=== PATIENT | female | born 2005 | race Caucasian/White ===

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

== ENCOUNTER 2025-01-08 12:23 | Outpatient (CLI) | payer MEDICAID, SELFPAY ==
[2025-01-08] VITALS (11 sets, daily range): BP systolic 105–137; BP diastolic 54–93; PULSE 64–102; RESP 16; BMI 28.0
[2025-01-08 12:58] LABS: Glucose Urine UA Negative (Normal); Nitrate Urine Negative (Negative); Specific Gravity, Urine 1.026 (1.005-1.030)
[2025-01-08] MEDS: ondansetron 2 mg/ML SDV 2 mL 4 MG IVP (13:47)
== END 2025-01-08 14:58 | disposition home or self-care (01) ==
LOC: OPOB 12:23 → OBGYN 12:24
PROVIDERS: PCP Student in an Organized Health Care Education/Training Program; Visit Provider Obstetrics & Gynecology
DX: O26.899 Other specified pregnancy related conditions, unspecified trimester (principal); Z3A.00 Weeks of gestation of pregnancy not specified; R25.2 Cramp and spasm
CPT/HCPCS: 81001; 99211; J2405; J7120

== ENCOUNTER → 2025-01-11 08:45 | Outpatient (BNVA) | payer MEDICAID, SELFPAY | PROVIDERS: PCP Student in an Organized Health Care Education/Training Program; Visit Provider Obstetrics & Gynecology | DX: Z34.90 Encounter for supervision of normal pregnancy, unspecified, unspecified trimester (principal) | CPT/HCPCS: 84315 ==

== ENCOUNTER → 2025-01-25 07:59 | Outpatient (BNVA) | payer MEDICAID, SELFPAY | PROVIDERS: PCP Student in an Organized Health Care Education/Training Program; Visit Provider Nurse Practitioner Women's Health | DX: Z34.90 Encounter for supervision of normal pregnancy, unspecified, unspecified trimester (principal) | CPT/HCPCS: 84315 ==

== ENCOUNTER → 2025-03-01 08:40 | Outpatient (BNVA) | payer MEDICAID, SELFPAY | PROVIDERS: PCP Student in an Organized Health Care Education/Training Program; Visit Provider Obstetrics & Gynecology | DX: O26.892 Other specified pregnancy related conditions, second trimester (principal); Z3A.28 28 weeks gestation of pregnancy | CPT/HCPCS: 82950; 84315; 85025 ==

== ENCOUNTER → 2025-03-06 08:01 | Outpatient (BNVA) | payer MEDICAID, SELFPAY | PROVIDERS: PCP Student in an Organized Health Care Education/Training Program; Visit Provider Nurse Practitioner Women's Health | DX: Z34.90 Encounter for supervision of normal pregnancy, unspecified, unspecified trimester (principal) | CPT/HCPCS: 84315 ==

== ENCOUNTER 2025-03-07 18:40 | Outpatient (CLI) | payer MEDICAID, SELFPAY ==
[2025-03-07 19:07] VITALS: BP 121/64; PULSE 85
[2025-03-07 19:21] VITALS: BP 96/59; PULSE 86
[2025-03-07 19:37] VITALS: BP 120/65; PULSE 86
[2025-03-07 19:42] VITALS: BMI 30.8
[2025-03-07 19:57] VITALS: BP 120/65; PULSE 86; RESP 15; TEMP 36.7; O2SAT 98
== END 2025-03-07 19:55 | disposition home or self-care (01) ==
LOC: OPOB 18:43 → OBGYN 18:57
PROVIDERS: PCP Student in an Organized Health Care Education/Training Program; Visit Provider Obstetrics & Gynecology
DX: O26.899 Other specified pregnancy related conditions, unspecified trimester (principal); Z3A.00 Weeks of gestation of pregnancy not specified; R10.9 Unspecified abdominal pain
CPT/HCPCS: 59025; 99211

== ENCOUNTER 2025-03-12 16:12 | Outpatient (CLI) | payer MEDICAID, SELFPAY ==
[2025-03-12 16:24] VITALS: BMI 31.1
[2025-03-12 16:36] VITALS: BP 119/67; PULSE 94
[2025-03-12 16:47] VITALS: BP 123/67; PULSE 94
[2025-03-12 17:02] VITALS: BP 127/60; PULSE 88
[2025-03-12 17:32] VITALS: BP 111/63; PULSE 100
[2025-03-12 17:47] VITALS: BP 112/64; PULSE 87
[2025-03-12 17:53] VITALS: BP 112/64; PULSE 87; RESP 14
== END 2025-03-12 17:56 | disposition home or self-care (01) ==
LOC: OPOB 16:16 → OBGYN 16:17
PROVIDERS: PCP Student in an Organized Health Care Education/Training Program; Visit Provider Obstetrics & Gynecology
DX: O26.899 Other specified pregnancy related conditions, unspecified trimester (principal); Z3A.00 Weeks of gestation of pregnancy not specified; R25.2 Cramp and spasm
CPT/HCPCS: 59025; 99211; J9999

== ENCOUNTER → 2025-03-26 08:19 | Outpatient (BNVA) | payer MEDICAID, SELFPAY | PROVIDERS: PCP Student in an Organized Health Care Education/Training Program; Visit Provider Obstetrics & Gynecology | DX: O26.893 Other specified pregnancy related conditions, third trimester (principal); Z3A.32 32 weeks gestation of pregnancy | CPT/HCPCS: 84315 ==